=== PATIENT | male | born 1960 | race American Indian/Alaskan Native ===

== ENCOUNTER 2019-02-09 11:13 | Emergency (ER) | payer MEDICAID ==
[2019-02-09] MEDS ORDERED: Naproxen 550 mg Tab PO STA (12:13)
[2019-02-09] MEDS ORDERED: Naproxen 550 mg Tab PO ONE (12:30)
--- NOTE | 2019-02-09 13:09 | RAD ---
Date of service: 02/09/2019 HISTORY: Mid/upper back pain h/o T7 fx. Cough for 1 week. COMPARISON: Thoracic spine 11/03/2013 TECHNIQUE: Chest PA and lateral FINDINGS: LUNGS: No consolidation seen PLEURA: No significant pleural effusion identified. No pneumothorax apparent. CARDIOVASCULAR: No aortic atherosclerotic calcification present. Normal cardiac size. No pulmonary vascular congestion. OSSEOUS STRUCTURES: The previously referenced T7 vertebral body compression fracture with prior reported 50 percent loss of height is hree noted. No interval distal fracture seen. Bilateral shoulder arthrosis VISUALIZED UPPER ABDOMEN: Normal. OTHER FINDINGS: None. IMPRESSION: No interval pathology noted. Specifically no pulmonary infiltrate. No change in the appearance of the previously reported midthoracic apparently the T7 vertebral body compression fracture deformity as referenced above compared with the 11/03/2013 image of it.
--- NOTE | 2019-02-09 13:13 | C.PDOC ---
History Of Present Illness Pt c/o mid/upper back pain. This pain is chronic due to previous injury, however pt had been having URI symptoms for the past few days which exacerbated the pain. Time Seen by Provider: 02/09/19 11:15 Chief Complaint (Nursing): Back Pain History Per: Patient Onset/Duration Of Symptoms: Days (chronic) Current Symptoms Are (Timing): Still Present Quality Of Discomfort: "Pain" Severity: Moderate Previous Symptoms: Back Pain, Prior Injury Associated Symptoms: None Exacerbating Factor(s): Movement Additional History Per: Prior Records Past Medical History Reviewed: Historical Data, Nursing Documentation, Vital Signs Vital Signs: Last Vital Signs Temp 97.5 F L 02/09/19 11:16 Pulse 88 02/09/19 11:16 Resp 20 02/09/19 11:16 BP 159/104 H 02/09/19 11:16 Pulse Ox 99 02/09/19 11:16 - Medical History PMH: Back Problems (back fracture at T7) Family History: States: Unknown Family Hx - Social History Hx Tobacco Use: No Hx Alcohol Use: Yes Hx Substance Use: No - Immunization History Hx Tetanus Toxoid Vaccination: No Hx Influenza Vaccination: No Hx Pneumococcal Vaccination: No Review Of Systems Except As Marked, All Systems Reviewed And Found Negative. Constitutional: Negative for: Fever, Weakness ENT: Positive for: Nose Congestion Cardiovascular: Negative for: Chest Pain Respiratory: Positive for: Cough. Negative for: Shortness of Breath, Hemoptysis Gastrointestinal: Negative for: Vomiting, Abdominal Pain Genitourinary: Negative for: Dysuria, Incontinence Musculoskeletal: Positive for: Back Pain. Negative for: Neck Pain Skin: Negative for: Rash Neurological: Negative for: Weakness, Numbness Physical Exam - Physical Exam Appears: Non-toxic, No Acute Distress Skin: Normal Color, Warm, Dry, No Rash Head: Atraumatic, Normacephalic Eye(s): bilateral: PERRL, EOMI Neck: Normal ROM, Supple Cardiovascular: Rhythm Regular Respiratory: Normal Breath Sounds, No Accessory Muscle Use Gastrointestinal/Abdominal: Soft, No Tenderness Back: No CVA Tenderness, No Vertebral Tenderness Extremity: Normal ROM Neurological/Psych: Oriented x3, Normal Motor, Normal Sensation ED Course And Treatment O2 Sat by Pulse Oximetry: 99 Pulse Ox Interpretation: Normal - Radiology CXR: Viewed By Me, Read By Radiologist CXR Interpretation: Yes: No Acute Disease, Fracture (T7, chronic) Reassessment Condition: Improved Disposition Counseled Patient/Family Regarding: Studies Performed, Diagnosis, Need For Followup, Rx Given - Disposition Referrals: Connor Loera MD [Staff Provider] - Disposition: HOME/ ROUTINE Disposition Time: 13:15 Condition: STABLE Additional Instructions: Follow up with your doctor for further evaluation and treatment. Return to the ER if you develop shortness of breath, chest pain, weakness, numbness, worsening of symptoms or if you have any other concerns. Prescriptions: Naproxen 375 mg PO BID PRN #20 tablet PRN Reason: Pain, Moderate (4-7) Promethazine/Dextromethorphan [Promethazine-Dm Syrup] 5 ml PO Q4 PRN #1 syrup PRN Reason: Cough And Congestion Instructions: Upper Back Pain (DC), Cough, Runny Nose, and the Common Cold (DC) - Clinical Impression Clinical Impression: Thoracic back pain, Upper respiratory infection
[2019-02-09 13:36] VITALS: BP 146/95; PULSE 82; RESP 18; TEMP 98.1; O2SAT 100
== END 2019-02-09 13:35 | disposition home or self-care (01) ==
LOC: C.ER 11:13
DX: M54.6 Pain in thoracic spine (principal); J06.9 Acute upper respiratory infection, unspecified